=== PATIENT | female | born 1965 | race Caucasian/White ===

== ENCOUNTER 2025-05-16 05:52 | Day surgery (SDC) | payer OTHER ==
[~2025-05-16] VITALS: Ht 167.6 cm; Wt 116.0 kg
[~2025-05-16 05:52] MED LIST: ALLEGRA ALLERG180 MG PO; ASPIRIN EC81 MG PO; AZELASTINE HCL6 ML OPTH; CO Q-10100 MG PO; COZAAR50 MG PO; CRANBERRY450 M2 PO; DULCOLAX STOOL100 MG PO; FISH OIL 1,0001 EAC8 PO; FLAXSEED OIL1000 M1 PO; FLUTICASONE PRO16 GM NAS; INCRUSE ELLI62.5 MCG INH; LACTATED RINGER'S 1,000 ML IV SCH; LIPITOR20 MG PO; MAGNESIUM400 M1 PO; MULTI-DAY VITA1 EACH PO; NORCO 5-325 TA1 EACH PO; PHENTERMINE H37.5 M1 PO; ROSUVASTATIN CA10 MG PO; SPIRIVA RESPIMAT4 GM INH; VITAMIN A8000 UNIT PO; VITAMIN B122500 MCG PO; VITAMIN D2000 UNI1 PO; VITAMIN D5000 UNIT PO; ZEPBOUND5 MG/0.51 SUB-Q
[2025-05-16 06:20] VITALS: BP 145/80
[2025-05-16] MEDS ORDERED: LIDOCAINE HCL 2% 5 ML SDV ONE (06:50)
[2025-05-16] MEDS ORDERED: LIDOCAINE HCL 1% 5 ML SDV INJ ONE (07:00)
[2025-05-16] MEDS ORDERED: IBLOOD GLUCOSE TEST STRIP 1 EA TEST VI PRN (07:00)
--- NOTE | 2025-05-16 07:50 | NUR ---
PT NOT AVAILABLE FOR VISIT. PROVIDED PRAYER.
--- NOTE | 2025-05-16 08:32 | NUR ---
05/16/25 0832 Carmen Lopez 0820-PATIENT ARRIVED TO PACU ON 4L NC RR EVEN PATIENT LAYING LEFT LATERAL AWAKENS TO VERBAL STIMULI PASSING GAS DENIES PAIN OR NAUSEA. ORIENTED TO PACU. IVF INFUSING. SR WITH PVCS. 0825-PATIENT REPOSITIONS SELF TO BACK BP CUFF READJUSTED. 0830-DR. COLON AT BEDSIDE. PATIENT AWAKE DENIES PAIN OR NAUSEA. 4L NC RR EVEN SLEEP APNEA HANDOUT TO GO HOME WITH PATIENT. PATIENTS HOB ELEVATED TEETH PLACED IN BY PATIENT.
[2025-05-16 08:55] VITALS: BP 160/92
--- NOTE | 2025-05-17 12:45 | OR ---
[facility] [address], [place] [address] Signed DATE OF OPERATION: 05/16/2025 SURGEON: Keven Colon MD PREOPERATIVE DIAGNOSES: 1. Family history of colon cancer (father). 2. History of polyps x3 in 2020. POSTOPERATIVE DIAGNOSES: 1. Polyps x9. 2. Extensive diverticulosis. PROCEDURE: Total colonoscopy to cecum with cold snare polypectomy x3, cold morcellation polypectomy x6. ANESTHESIA: Propofol infusion; Marshall Albarado CRNA. INDICATION: This 60-year-old white woman is a patient of Dr. Lynn Garcia and underwent colonoscopy by me in 2019 where she was found to have three tubular adenomas. She has no current symptoms of bleeding, diarrhea or constipation. She does have multiple underlying medical problems including COPD, though still smoking cigarettes, obesity for which she is now on a GLP-1 agonist and a family history of colon cancer in her father who of the disease. Additionally, she does drink 2 to 3 vodka drinks daily. She is at this time to undergo surveillance colonoscopy based on her family history and history of polyps, understands the risk of bleeding, infection, and perforation. FINDINGS: The prep was good overall. Complete colonoscopy was undertaken of the cecum. She had numerous diverticula of the sigmoid and left colon. In addition, she had polyps distributed throughout the colon, all of them small and all excised completely. This included the cecum, right colon, transverse colon, left colon, sigmoid. DESCRIPTION OF PROCEDURE: The patient was brought to the endoscopy suite and placed in lateral decubitus position, given intravenous sedation to the point of slurred speech and nystagmus. Notably, she has been off her GLP-1 agonist for over a week. After satisfactory intravenous sedation, digital rectal exam was performed showing no sign of abnormality. She did Electronically Signed By: KEVEN COLON MD 05/17/25 1245 PATIENT NAME: DOROTEO TOLLIVER OPERATIVE REPORT DATE OF : 63 REPORT #: [id number] PHYSICIAN: KEVEN COLON MD PCP: YARON MALDONADO MD REPORT IS CONFIDENTIAL AND NOT TO BE RELEASED WITHOUT AUTHORIZATION [facility] [address], [place] [address] Signed have external hemorrhoidal changes which were not acutely problematic. An Olympus video colonoscope was passed in the rectum and manipulated into the sigmoid where numerous diverticula were noted. Scope was advanced further ultimately to the right colon where a small sessile polyp was noted, this was excised with cold snare technique. Scope was advanced to the cecum where a very small polyp was noted near the appendiceal orifice. This was excised with cold morcellation technique. Upon withdrawal of scope, there were two additional polyps in the right colon, both excised with cold morcellation technique and they were adjacent to each other and sent in the same specimen container. Further withdrawal showed another small polyp of the transverse colon which was excised with cold snare technique. Withdrawal showed another polyp in the left colon and two additional ones in the distal left colon, both excised with cold morcellation technique and a final polyp in the sigmoid excised with cold snare technique. All specimens were appropriately labeled and patient ultimately taken to the recovery room in good condition having suffered no complication. CONCLUDING DIAGNOSIS: Multiple polyps (9). PLAN: Recommend repeat colonoscopy in 2 to 3 years based on current recommendations. Recommend high-fiber diet as well. She will return to the ongoing care of Dr. Lynn Garcia. Keven Colon MD JM/MODL /[id number] cc: Lynn Garcia MD Copies: LYNN GARCIA DMD ~ Electronically Signed By: KEVEN COLON MD 05/17/25 1245 PATIENT NAME: DOROTEO TOLLIVER OPERATIVE REPORT DATE OF : 63 REPORT #: [id number] PHYSICIAN: KEVEN COLON MD PCP: YARON MALDONADO MD REPORT IS CONFIDENTIAL AND NOT TO BE RELEASED WITHOUT AUTHORIZATION
--- NOTE | 2025-05-23 08:19 | PATH ---
[facility] [address] [facility] [place], [place] [address] Signed SPECIMEN(S): A ASCENDING COLON POLYP SPECIMEN(S): B CECUM COLON POLYP SPECIMEN(S): C ASCENDING COLON POLYP SPECIMEN(S): D TRANSVERSE COLON POLYP SPECIMEN(S): E DESCENDING COLON POLYP SPECIMEN(S): F DESCENDING COLON POLYP SPECIMEN(S): G SIGMOID POLYP SPECIMEN SOURCE: A. ASCENDING COLON POLYP B. CECUM COLON POLYP C. ASCENDING COLON POLYP D. TRANSVERSE COLON POLYP E. DESCENDING COLON POLYP F. DESCENDING COLON POLYP G. SIGMOID POLYP CLINICAL HISTORY: Pre-history of colon polyps, family history of colon cancer. Post-diverticulosis, polyps. A-G) polyp FINAL PATHOLOGIC DIAGNOSIS: A. Ascending colon polyp: - Tubular adenoma. - Negative for high-grade dysplasia or malignancy. B. Cecal colon polyp: - Tubular adenoma. - Negative for high-grade dysplasia or malignancy. C. Ascending colon polyp: - Tubular adenoma. - Negative for high-grade dysplasia or malignancy. D. Transverse colon polyp: - Polypoid fragment of benign colonic mucosa. - No colitis or neoplasm identified. E. Descending colon polyp: - Tubular adenoma. - Negative for high-grade dysplasia or malignancy. F. Descending colon polyp: - Tubular adenoma. - Negative for high-grade dysplasia or malignancy. PATIENT NAME: DOROTEO TOLLIVER PATHOLOGY DATE OF : 63 REPORT #: [id number] PHYSICIAN: EDUARDO PATHOLOGY PCP: YARON MALDONADO MD REPORT IS CONFIDENTIAL AND NOT TO BE RELEASED WITHOUT AUTHORIZATION [facility] [address] [place], [place] [address] Signed G. Sigmoid colon polyp: - Tubular adenoma. - Negative for high-grade dysplasia or malignancy. [facility] MICROSCOPIC EXAMINATION: Histologic sections of all submitted blocks are examined by light microscopy. These findings, together with the gross examination, support the pathologic diagnosis. GROSS DESCRIPTION: A. The specimen, labeled and designated "Hoeft, ascending colon polyp," is received in formalin and consists of one jordan soft tissue fragment, 0.3 cm. Entirely submitted in (A1). B. The specimen, labeled and designated "Hoeft, cecum colon polyp," is received in formalin and consists of one jordan soft tissue fragment, 0.3 cm. Entirely submitted in (B1). C. The specimen, labeled and designated "Hoeft, ascending colon polyp #2," is received in formalin and consists of six jordan soft tissue fragments, ranging from 0.1-0.3 cm. Entirely submitted in (C1). D. The specimen, labeled and designated "Hoeft, transverse colon polyp," is received in formalin and consists of three jordan soft tissue fragments, ranging from 0.2-0.3 cm. Entirely submitted in (D1). E. The specimen, labeled and designated "Hoeft, descending colon polyp," is received in formalin and consists of two jordan soft tissue fragments, ranging from 0.2-0.3 cm. Entirely submitted in (E1). F. The specimen, labeled and designated "Hoeft, descending colon polyp #2," is received in formalin and consists of five jordan soft tissue fragments, ranging from 0.1-0.3 cm. Entirely submitted in (F1). G. The specimen, labeled and designated "Hoeft, sigmoid polyp," is received in formalin and consists of one jordan soft tissue fragment, 0.3 cm. Entirely submitted in (G1). AB (under the direct supervision of a pathologist) The Gross Description was prepared using a voice recognition system. The report was reviewed for accuracy; however, sound-alike word errors, addition and/or deletions may occur. If there is any question about this report, please contact Client Services. ADDITIONAL NOTES: Immunohistochemical and/or in situ hybridization studies if performed in this case included appropriate positive controls that reacted as expected. This PATIENT NAME: DOROTEO TOLLIVER PATHOLOGY DATE OF : 63 REPORT #: [id number] PHYSICIAN: EDUARDO QUINONEZ PCP: YARON MALDONADO MD REPORT IS CONFIDENTIAL AND NOT TO BE RELEASED WITHOUT AUTHORIZATION [facility] [address], [place] [address] Signed test was developed and its performance characteristics determined by [email or web address]. It has not been cleared or approved by the U.S. Food and Drug Administration. The FDA has determined that such clearance or approval is not necessary. This test is used for clinical purposes. It should not be regarded as investigational or for research. [email or web address] is certified under the Clinical Laboratory Improvement Amendments of 1988 (CLIA) as qualified to perform high complexity clinical laboratory testing. PERFORMING LABORATORY: Technical component was performed by [email or web address], [address] [place] [id number] (CLIA# [id number]). Professional interpretation was performed by [facility], [address] [place] [address], [place] [address] (CLIA#: [id number]). Diagnostician: Mino Koehler MD Pathologist Electronically Signed 05/23/2025 Copies: ~ PATIENT NAME: DOROTEO TOLLIVER PATHOLOGY DATE OF : 63 REPORT #: [id number] PHYSICIAN: EDUARDO PATHOLOGY PCP: YARON MALDONADO MD REPORT IS CONFIDENTIAL AND NOT TO BE RELEASED WITHOUT AUTHORIZATION
== END 2025-05-16 09:00 | disposition home or self-care (01) ==
LOC: DS 05:52
PROVIDERS: ATTEND Surgery
PROC: 0DBN8ZZ Excision of Sigmoid Colon, Via Natural or Artificial Opening Endoscopic (ICD-10-PCS; 2025-05-16)
PROC: 0DBH8ZX Excision of Cecum, Via Natural or Artificial Opening Endoscopic, Diagnostic (ICD-10-PCS; 2025-05-16)
PROC: 0DBL8ZX Excision of Transverse Colon, Via Natural or Artificial Opening Endoscopic, Diagnostic (ICD-10-PCS; 2025-05-16)
PROC: 0DBG8ZX Excision of Left Large Intestine, Via Natural or Artificial Opening Endoscopic, Diagnostic (ICD-10-PCS; 2025-05-16)
PROC: 0DBF8ZZ Excision of Right Large Intestine, Via Natural or Artificial Opening Endoscopic (ICD-10-PCS; principal; 2025-05-16 07:30)
DX: Z12.11 Encounter for screening for malignant neoplasm of colon (principal); D12.0 Benign neoplasm of cecum; D12.2 Benign neoplasm of ascending colon; D12.4 Benign neoplasm of descending colon; K63.5 Polyp of colon; K64.4 Residual hemorrhoidal skin tags; J44.9 Chronic obstructive pulmonary disease, unspecified; E78.5 Hyperlipidemia, unspecified; F17.210 Nicotine dependence, cigarettes, uncomplicated; E66.01 Morbid (severe) obesity due to excess calories; Z68.41 Body mass index [BMI] 40.0-44.9, adult; Z86.0101 Personal history of adenomatous and serrated colon polyps; Z80.0 Family history of malignant neoplasm of digestive organs; Z88.5 Allergy status to narcotic agent
CPT/HCPCS: 00811; J2003; J2704; J7121